=== PATIENT | female | born 1955 ===

== ENCOUNTER 2020-04-11 12:20 | Outpatient (CLI) | payer OTHER | END 2020-04-11 12:25 | disposition home or self-care (01) | LOC: MRI 12:20 | PROVIDERS: ATTEND Orthopaedic Surgery | DX: M25.561 Pain in right knee (principal); M25.562 Pain in left knee | CPT/HCPCS: 73718 ==

== ENCOUNTER 2020-05-21 13:05 | Inpatient (IN) | payer OTHER ==
[~2020-05-21] VITALS: Ht 157.5 cm; Wt 97.1 kg
[2020-05-21] MEDS ORDERED: KAPSPARGO SPRIN25 MG PO (13:25)
[2020-05-21] MEDS ORDERED: PRILOSEC OTC20 MG PO (13:26)
[2020-05-21] MEDS ORDERED: COZAAR50 MG PO (13:26)
[2020-05-21] MEDS ORDERED: HYOSCYAMINE0.125 M2 PO (13:26)
[2020-05-21] MEDS ORDERED: FLECAINIDE ACET50 MG PO (13:26)
[2020-05-21] MEDS ORDERED: LANTUS SOL100 UNIT/1 SQ (13:27)
[2020-05-21] MEDS ORDERED: GLIPIZIDE XL10 MG PO (13:27)
[2020-05-21] MEDS ORDERED: TRULICITY0.75 MG/0. SQ (13:27)
[2020-05-21] MEDS ORDERED: FORTAMET1000 MG PO (13:27)
[2020-05-21] MEDS ORDERED: GABAPENTIN400 MG PO (13:28)
[2020-05-21] MEDS ORDERED: NASAL MIST126 ML NASAL (13:29)
== END 2020-05-27 16:24 | disposition home or self-care (01) | DRG 488 ==
LOC: ER 13:05 → MEDI 19:36 → SEC-K 19:36 → SURG 05-22 07:39 → SEC-K 05-22 07:53 → MEDI 05-23 11:57 → O/R 05-23 14:05 → SURH 05-23 21:00 → O/R 05-24 10:22 → SURH 05-24 17:01
PROVIDERS: Orthopaedic Surgery; ADMIT Internal Medicine; ATTEND Internal Medicine
PROC: 30233N1 Transfusion of Nonautologous Red Blood Cells into Peripheral Vein, Percutaneous Approach (ICD-10-PCS; 2020-05-22)
PROC: 3E0F7GC Introduction of Other Therapeutic Substance into Respiratory Tract, Via Natural or Artificial Opening (ICD-10-PCS; 2020-05-22)
PROC: 0SJC4ZZ Inspection of Right Knee Joint, Percutaneous Endoscopic Approach (ICD-10-PCS; 2020-05-23)
PROC: 4A033R1 Measurement of Arterial Saturation, Peripheral, Percutaneous Approach (ICD-10-PCS; 2020-05-23)
PROC: 0SBC4ZZ Excision of Right Knee Joint, Percutaneous Endoscopic Approach (ICD-10-PCS; principal; 2020-05-23 14:00)
DX: M17.11 Unilateral primary osteoarthritis, right knee (principal); D68.0 Von Willebrand disease; D50.0 Iron deficiency anemia secondary to blood loss (chronic); D69.49 Other primary thrombocytopenia; D64.9 Anemia, unspecified; I78.0 Hereditary hemorrhagic telangiectasia; I10 Essential (primary) hypertension; E66.8 Other obesity; E11.9 Type 2 diabetes mellitus without complications; E78.5 Hyperlipidemia, unspecified; M22.41 Chondromalacia patellae, right knee; M65.861 Other synovitis and tenosynovitis, right lower leg; R06.89 Other abnormalities of breathing; Z20.828 Contact with and (suspected) exposure to other viral communicable diseases